=== PATIENT | female | born 1990 | race Hispanic/Latino ===

== ENCOUNTER 2017-08-13 13:20 | Emergency (ER) | payer MEDICAID ==
[2017-08-13 13:47] VITALS: BP 117/88
[2017-08-13] MEDS ORDERED: TYLENOL/CODEINE PO ONE (15:53)
[2017-08-13] MEDS ORDERED: DELTASONE PO ONE (15:53)
--- NOTE | 2017-08-13 15:59 | Emergency Department Report ---
HPI - General Chief Complaint: Back Pain/Injury Time Seen by Provider: 08/13/17 15:19 - HPI HPI: Patient is a 27-year-old female who presents ED complaining of back pain that began last night. Patient states pain Q [place] nowhere. She describes pain as tingling and sensation first of a cane aching and throbbing in its on both sides of her back. Patient states yesterday she asked her son to help step on her back to try to get the pain down but that did not help at all. Patient denies any recent trauma injuries or falls or back. She denies fevers/chills/nausea vomiting headaches or any other problems ED Past Medical Hx - Past Medical History Additional medical history: BONE GRAFT TO LEFT ARM - Surgical History Past Surgical History?: No - Social History Smoking Status: Never Smoker Substance Use Type: None - Medications Home Medications: Home Medications Medication Instructions Recorded Confirmed Last Taken Type Acetaminophen/Codeine [Tylenol 1 tab PO Q6H PRN #8 tab 08/13/17 Unknown Rx /Codeine # 3 tab] Cyclobenzaprine [Flexeril] 10 mg PO QHS PRN #20 tablet 08/13/17 Unknown Rx Diclofenac EC [Voltaren] 25 mg PO TID #20 tablet 08/13/17 Unknown Rx ED Review of Systems ROS: Stated complaint: SPINE INJURY Other details as noted in HPI Constitutional: denies: chills, fever Eyes: denies: eye pain, eye discharge, vision change ENT: denies: ear pain, throat pain Respiratory: denies: cough, shortness of breath, wheezing Cardiovascular: denies: chest pain, palpitations Endocrine: no symptoms reported Gastrointestinal: denies: abdominal pain, nausea, diarrhea Genitourinary: denies: urgency, dysuria, discharge Musculoskeletal: back pain. denies: joint swelling, arthralgia Skin: denies: rash, lesions Neurological: denies: headache, weakness, paresthesias Psychiatric: denies: anxiety, depression Hematological/Lymphatic: denies: easy bleeding, easy bruising Physical Exam - Physical Exam Vital Signs: Vital Signs 08/13/17 13:44 Temperature 98.6 F Pulse Rate 65 Respiratory 18 Rate Blood Pressure 117/88 O2 Sat by Pulse 98 Oximetry Physical Exam: GENERAL: Alert and oriented x3, no apparent distress, Normal Gait, atraumatic. HEAD: Head is normocephalic and a-traumatic. NECK: Supple. Non edematous, No lymphadenopathy or thyromegaly. No C-spine tenderness LUNGS: Symetrical with respiration, No wheezing, no rales or crackles, CTAB. HEART: S1, S2 present, regular rate and rhythm without murmur, no rubs, no gallops. Non tender to palpation BACK: Full range of motion, no spinal tenderness, tenderness to palpation of latissimus dorsi and trapezius muscles . EXTREMITIES/MUSCULOSKELETAL: No cyanosis, clubbing, rash, lesions or edema. Full ROM bilaterally. UE/LE Pulses 2+ bilaterally. LE and UE 5+ strength bilaterally, NEUROLOGIC: The patient is cooperative with no focal neurologic deficits. Cranial nerves II through XII are grossly intact. Normal speech. Normal sensation in bilateral upper and lower extremities, No loss of sensation. ED Course Vital Signs 08/13/17 13:44 Temperature 98.6 F Pulse Rate 65 Respiratory 18 Rate Blood Pressure 117/88 O2 Sat by Pulse 98 Oximetry ED Medical Decision Making - Medical Decision Making 27-year-old female presents to ED with myalgia of the back ED course: Patient received prednisone in ED. Vital signs are normal patient is in no acute distress Discussed with patient follow-up with primary care physician. Discussed the patient and take medications as prescribed. Patient has no neurological deficit. Patient is alert and oriented 3 and understands all instructions given. Discussed drowsiness effect of Flexeril makes her drowsy and not to operate machinery while taking flexeril Critical care attestation.: If time is entered above; I have spent that time in minutes in the direct care of this critically ill patient, excluding procedure time. ED Disposition Clinical Impression: Back muscle spasm, Myalgia Disposition: - TO HOME OR SELFCARE Is pt being admited?: No Does the pt Need Aspirin: No Condition: Stable Instructions: Trigger Point Pain (ED), Musculoskeletal Pain (ED) Additional Instructions: Make sure to follow up with the primary care physician as discussed. Take all your medications as you've been prescribed. If you have any worsening symptoms or develop new symptoms please return to ED immediately. Prescriptions: Cyclobenzaprine [Flexeril] 10 mg PO QHS PRN #20 tablet PRN Reason: Muscle Spasm Acetaminophen/Codeine [Tylenol /Codeine # 3 tab] 1 tab PO Q6H PRN #8 tab PRN Reason: Pain Diclofenac EC [Voltaren] 25 mg PO TID #20 tablet Referrals: PRIMARY CARE,MD [Primary Care Provider] - 3-5 Days [facility] [Outside] - 3-5 Days [facility] [Outside] - 3-5 Days Forms: Work/School Release Form(ED) Time of Disposition: 16:20
== END 2017-08-13 16:39 | disposition home or self-care (01) ==
LOC: ED 13:20
DX: M79.1 Myalgia (principal); Z88.6 Allergy status to analgesic agent; Z88.1 Allergy status to other antibiotic agents
CPT/HCPCS: 99282; J7512

== ENCOUNTER 2017-10-08 10:53 | Emergency (ER) | payer MEDICAID ==
[2017-10-08 10:58] VITALS: BP 138/74
--- NOTE | 2017-10-08 11:37 | Emergency Department Report ---
Chief Complaint: Back Pain/Injury Stated Complaint: BACK PAIN Time Seen by Provider: 10/08/17 11:23 - HPI History of Present Illness: 27-year-old female presents to the emergency department with complaint of some midline and paraspinal back pain that has been going on since last night. She says that she turned in her sleep and somehow exacerbated this pain. She denies any problems with bowel or bladder, numbness or paresthesias or any neurological deficits. She has no problems with ambulation. She took some ibuprofen for her symptoms is morning without much relief. The patient has been here to [facility], in August, for similar symptoms. - ROS Review of Systems: Positive for back pain. Negative for numbness or paresthesias, motor or sensory deficits, problems with bowel or bladder - Exam Vital Signs: Vital Signs 10/08/17 10:56 Temperature 97.5 F L Pulse Rate 77 Respiratory 20 Rate Blood Pressure 138/74 O2 Sat by Pulse 99 Oximetry Physical Exam: Heart and lung Sounds are normal to auscultation. She has +2 over 4 patellar reflexes bilaterally. She has full upper and lower extremity muscle strength. There is some tenderness to palpation to both midline and paraspinal lumbar and lower thoracic back. MSE screening note: Focused history and physical exam performed. Due to findings the following was ordered: She will have an x-ray of the thoracic or lumbar spine. I checked the [employer] prescription monitoring system and the patient has filled 13 prescriptions for narcotic pain medication since the beginning of 2017. I have made her aware that we are going to attempt to treat her pain and provide normal medical care and any referrals necessary but we will not be using narcotic pain medication. ED Disposition for MSE Condition: Stable Referrals: THAO KELLEY MD [Other] - 3-5 Days
== END 2017-10-08 11:50 ==
LOC: ED 10:53
DX: M54.9 Dorsalgia, unspecified (principal); Z53.21 Procedure and treatment not carried out due to patient leaving prior to being seen by health care provider